=== PATIENT | female | born 1995 | race Two or more races ===

== ENCOUNTER 2019-07-09 10:07 | Emergency (ER) | payer OTHER ==
[~2019-07-09] VITALS: Ht 160 cm; Wt 59.0 kg
[2019-07-09 10:10] VITALS: BP 111/65
--- NOTE | 2019-07-09 11:15 | NUR ---
AT BEDSIDE FOR EVAL.
--- NOTE | 2019-07-09 11:24 | NUR ---
Patient discharged to home in stable condition. Written and verbal after care instructions given. Patient verbalizes understanding of instruction.
== END 2019-07-09 11:31 | disposition home or self-care (01) ==
LOC: ER 10:10
DX: B34.9 Viral infection, unspecified (principal); J45.909 Unspecified asthma, uncomplicated